=== PATIENT | female | born 1965 | race Caucasian/White ===

== ENCOUNTER 2023-08-14 13:46 | Emergency (ER) | payer BC, SELFPAY ==
[~2023-08-14 13:46] MED LIST: Iopamidol 370 76% 100 ML VIAL ONE
[2023-08-14] MEDS ORDERED: fentaNYL 50 mcg/mL 1 mL Vial ONE (14:39)
[2023-08-14] MEDS ORDERED: Sodium Chloride 0.9% 1,000 ML ONE (14:40)
[2023-08-14] MEDS ORDERED: Boostrix 0.5 ML (Tdap) VIAL (>/=7 yrs of age) ONE (14:40)
[2023-08-14 14:48] LABS: #Basophils 0.1 thou/uL (0.0-0.2); #Eosinphils 0.1 thou/uL (0.0-0.7); #Lymphocytes 1.9 thou/uL (1.20-3.40); #Monocytes 0.8 thou/uL (0.11-0.59); #Neutrophils 11.5 thou/uL (1.40-6.50); %Basophils 0.5 % (0.0-1.0); %Eosinophils 0.5 % (0.0-10.0); %Lymphocytes 13.2 % (21.0-51.0); %Monocytes 5.3 % (0.0-10.0); %Neutrophils 80.5 % (42.0-75.0); Hematocrit 48.4 % (36.0-47.0); Hemoglobin 15.1 g/dL (12.0-16.0); Mean Corpuscular HGB CONC 31.3 g/dL (32.0-36.0); Mean Corpuscular Hemoglobin 27.8 pg (27.0-31.0); Mean Corpuscular Volume 88.9 fl (78.0-98.0); Mean Platelet Volume 9.5 fL (7.4-10.4); Platelet Count 203 10x3/uL (130-400); RBC Distribution Width 13.1 % (11.5-14.5); Red Blood Cell (RBC) Count 5.44 mill/uL (4.20-5.40); White Blood Cell (WBC) Count 14.2 10x3/uL (4.8-10.8)
[2023-08-14 15:03] LABS: ALT (SGPT) 37 U/L (8-55); AST (SGOT) 38 U/L (5-34); Albumin 4.1 g/dL (3.5-5.0); Alkaline Phosphatase 86 U/L (40-110); Anion Gap 17 mmol/L (10-20); BUN (Urea Nitrogen) 14 mg/dL (9.8-20.1); Bilirubin, Total 0.5 mg/dL (0.2-1.2); Calc. Creatinine Clearance 0 mL/min (70-130); Calcium 10.4 mg/dL (7.8-10.44); Carbon Dioxide 19 mmol/L (22-29); Chloride 108 mmol/L (98-107); Estimated GFR 89; Globulin 2.2 g/dL (2.4-3.5); Glucose 178 mg/dL (70-105); Lipase 21 U/L (8-78); Potassium 3.9 mmol/L (3.5-5.1); Protein, Total 6.3 g/dL (6.0-8.3); Sodium 140 mmol/L (136-145)
[2023-08-14 15:11] LABS: Prothrombin Time 13.2 sec (12.0-14.7)
[2023-08-14 15:14] LABS: PTT 22.5 sec (22.9-36.1)
== END 2023-08-14 17:30 | disposition home or self-care (01) ==
LOC: MADERS 13:46
DX: S22.31XA Fracture of one rib, right side, initial encounter for closed fracture (principal); S90.511A Abrasion, right ankle, initial encounter; S40.811A Abrasion of right upper arm, initial encounter; S40.812A Abrasion of left upper arm, initial encounter; S22.039A Unspecified fracture of third thoracic vertebra, initial encounter for closed fracture; G91.9 Hydrocephalus, unspecified; I27.20 Pulmonary hypertension, unspecified; E11.9 Type 2 diabetes mellitus without complications; Z23 Encounter for immunization; V48.1XXA Car passenger injured in noncollision transport accident in nontraffic accident, initial encounter
CPT/HCPCS: 36415; 70450; 71260; 72125; 74177; 80053; 83690; 85025; 85610; 85730; 90715; 93005; 94760; 96374; J3010; J7050; Q9967